=== PATIENT | female | born 1990 | race Caucasian/White ===

== ENCOUNTER → 2022-03-15 | Outpatient (CLI) | payer OTHER | LOC: HEART CORB 12:00 | DX: I49.3 Ventricular premature depolarization (principal); R07.2 Precordial pain ==

== ENCOUNTER → 2022-04-12 | Outpatient (CLI) | payer OTHER | LOC: HEART CORB 13:40 | DX: R07.89 Other chest pain (principal); R00.2 Palpitations; I49.3 Ventricular premature depolarization; R00.0 Tachycardia, unspecified; I07.1 Rheumatic tricuspid insufficiency | CPT/HCPCS: 93306 ==